=== PATIENT | male | born 1975 | race African-American/Black ===

== ENCOUNTER 2018-01-03 13:17 | Outpatient (CLI) | payer MEDICARE | END 2018-01-03 13:18 | disposition home or self-care (01) | LOC: BICULT 13:17 | PROVIDERS: ATTEND Family Medicine | DX: I10 Essential (primary) hypertension (principal) | CPT/HCPCS: 76700; 76770 ==

== ENCOUNTER 2018-02-03 07:28 | Outpatient (CLI) | payer MEDICARE | END 2018-02-03 07:29 | disposition home or self-care (01) | LOC: BICULT 07:28 | PROVIDERS: ATTEND Internal Medicine Gastroenterology | DX: K21.9 Gastro-esophageal reflux disease without esophagitis (principal); R10.13 Epigastric pain | CPT/HCPCS: 76705 ==

== ENCOUNTER 2018-05-17 15:15 | Outpatient (CLI) | payer MEDICARE ==
[~2018-05-17 15:15] MED LIST: ISOVUE-370 76%-LOCM 1 ML ONE
== END 2018-05-17 15:16 | disposition home or self-care (01) ==
LOC: BICCT 15:15
PROVIDERS: ATTEND Otolaryngology Plastic Surgery within the Head & Neck
DX: Q31.3 Laryngocele (principal)
CPT/HCPCS: 70492

== ENCOUNTER 2018-06-08 20:30 | Outpatient (CLI) | payer MEDICARE | END 2018-06-08 20:31 | disposition home or self-care (01) | LOC: SLEEPLAB 20:30 | PROVIDERS: ATTEND Otolaryngology Plastic Surgery within the Head & Neck | DX: G47.33 Obstructive sleep apnea (adult) (pediatric) (principal); R53.83 Other fatigue; K21.9 Gastro-esophageal reflux disease without esophagitis; R06.83 Snoring | CPT/HCPCS: 95811 ==